=== PATIENT | male | born 1990 | race Caucasian/White ===

== ENCOUNTER 2018-09-27 17:25 | Emergency (ER) | payer OTHER ==
[~2018-09-27] VITALS: Ht 177.8 cm; Wt 76.2 kg
[2018-09-27] MEDS ORDERED: OSEL75CA PO (19:45)
[2018-09-27] MEDS ORDERED: PHENERGAN25 MG PO (19:45)
[2018-09-27] MEDS ORDERED: AIRBORNE EFFER1 EACH PO (19:45)
[2018-09-27] MEDS ORDERED: KETO10TA2 PO (19:45)
== END 2018-09-27 19:53 | disposition home or self-care (01) ==
LOC: ER 17:25
DX: J11.1 Influenza due to unidentified influenza virus with other respiratory manifestations (principal); R51 Headache